=== PATIENT | female | born 1960 | race Caucasian/White ===

== ENCOUNTER 2017-06-29 11:01 | Emergency (ER) | payer BC ==
[2013-08-30 18:14] VITALS: BMI 21.5
[~2017-06-29 11:01] MED LIST: AMOXICILLIN500 M1 PO; BUMEX2 MG PO; COZAAR50 MG PO; DIFLUCAN100 MG PO; DOXYCYCLINE HY100 M2 PO; EFFEXOR75 MG PO; FERROUS SULFAT325 MG PO; KLOR-CON 1010 MEQ PO; PERCOCET 10/3251 TA1 PO
[2017-06-29 11:33] LABS: BASOPHILS 0.4 % (0-2); HEMATOCRIT 40.7 % (36.0-48.0); HEMOGLOBIN 13.4 g/dL (12-16); IMMATURE GRANULOCYTES 0.3 % (0-5); LYMPHOCYTES 15.7 % (15-50); MCH 29.5 pg (26.0-34.0); MCHC 32.9 g/dL (31.0-37.0); MCV 89.6 fL (80.0-100.0); MEAN PLATELET VOLUME 12.3 fL (7.4-10.4); NEUTROPHILS 76.6 % (40-80); PLATELET COUNT 258 10x3/uL (130-400); RBC 4.54 10x6/uL (4.00-5.40); RDW 13.3 % (11.5-14.5); WBC 7.7 10x3/uL (4.8-10.8)
[2017-06-29 11:44] LABS: ALBUMIN 3.7 g/dL (3.4-5.0); ANION GAP 16.1 mmol/L (8-16); BILIRUBIN - TOTAL 1.1 mg/dL (0.2-1.3); CALCIUM 8.1 mg/dL (8.5-10.1); CARBON DIOXIDE 24.7 mmol/L (21.0-32.0); POTASSIUM - SERUM 3.8 mmol/L (3.5-5.1); PROTEIN - SERUM 6.9 g/dL (6.4-8.2)
== END 2017-06-29 13:25 | disposition home or self-care (01) ==
LOC: D.ER 11:01
PROVIDERS: Emergency Medicine
DX: I50.9 Heart failure, unspecified (principal); J11.1 Influenza due to unidentified influenza virus with other respiratory manifestations; F17.200 Nicotine dependence, unspecified, uncomplicated